=== PATIENT | female | born 1945 | race Caucasian/White ===

== ENCOUNTER 2016-11-19 11:16 | Emergency (ER) | payer MEDICARE ==
[2016-11-19] MEDS ORDERED: Ibuprofen 200 MG TAB ONE (11:49)
[2016-11-19] MEDS ORDERED: Sterile Water 100 ML ONE (12:04)
[2016-11-19 12:18] LABS: ALT (SGPT) 41 U/L (8-55); AST (SGOT) 30 U/L (5-34); Alkaline Phosphatase 129 U/L (40-150); Anion Gap 14 mmol/L (10-20); BUN (Urea Nitrogen) 16 mg/dL (9.8-20.1); Bilirubin, Total 0.6 mg/dL (0.2-1.2); Calc. Creatinine Clearance 0 mL/min (70-130); Carbon Dioxide 26 mmol/L (23-31); Chloride 103 mmol/L (98-107); Estimated GFR-MDRD 70; Globulin 3.8 g/dL (2.4-3.5); Glucose 146 mg/dL (80-115); Potassium 4.3 mmol/L (3.5-5.1); Protein, Total 7.8 g/dL (6.0-8.3); Sodium 139 mmol/L (136-145)
[2016-11-19 12:22] LABS: Band 10 % (5-11); Hemoglobin 15.2 g/dL (12.0-16.0); Lymphocytes 4 % (21-51); MDiff Complete? YES; Mean Platelet Volume 7.1 fL (7.4-10.4); Monocytes 7 % (0-10); Neutrophil 79 % (42-75); Platelet Count 235 thou/uL (130-400); RBC Distribution Width 13.7 % (11.5-14.5); White Blood Cell (WBC) Count 22.5 thou/uL (4.8-10.8)
[2016-11-19] MEDS ORDERED: Acetaminophen 325 MG TAB ONE (12:31)
--- NOTE | 2016-11-19 17:23 | RAD ---
CHEST TWO VIEWS: 11/19/16 There is some increased density to the right of the heart on the PA film and anteriorly on the later al. A right middle lobe infiltrate is suspected. Haziness near the cardiac apex is probably just woody gular scarring. The lung apices are clear. There are no effusions. The heart size is normal. IMPRESSION: Suspicious for right middle lobe infiltrate. POS: HOME
== END 2016-11-19 13:47 | disposition home or self-care (01) ==
LOC: BURERS 11:16
DX: J18.9 Pneumonia, unspecified organism (principal); I10 Essential (primary) hypertension
CPT/HCPCS: 71020; 80053; 85025; 96360

== ENCOUNTER 2018-06-19 16:15 | Emergency (ER) | payer MEDICARE ==
[2018-06-19 18:23] LABS: ALT (SGPT) 29 U/L (8-55); AST (SGOT) 23 U/L (5-34); Albumin 4.1 g/dL (3.4-4.8); Alkaline Phosphatase 117 U/L (40-150); Anion Gap 18 mmol/L (10-20); BUN (Urea Nitrogen) 41 mg/dL (9.8-20.1); Bilirubin, Total 0.4 mg/dL (0.2-1.2); Calc. Creatinine Clearance 0 mL/min (70-130); Calcium 10.9 mg/dL (7.8-10.44); Carbon Dioxide 19 mmol/L (23-31); Chloride 107 mmol/L (98-107); Estimated GFR-MDRD 21; Globulin 3.5 g/dL (2.4-3.5); Glucose 111 mg/dL (80-115); Potassium 3.5 mmol/L (3.5-5.1); Protein, Total 7.6 g/dL (6.0-8.3); Sodium 140 mmol/L (136-145)
[2018-06-19 18:24] LABS: Band 1 % (5-11); Eosinophils 1 % (0-10); Hemoglobin 15.8 g/dL (12.0-16.0); Lymphocytes 15 % (21-51); MDiff Complete? YES; Mean Corpuscular HGB CONC 32.1 g/dL (32.0-36.0); Mean Corpuscular Hemoglobin 30.8 pg (27.0-31.0); Mean Corpuscular Volume 95.9 fL (78.0-98.0); Mean Platelet Volume 7.6 fL (7.4-10.4); Monocytes 6 % (0-10); Neutrophil 77 % (42-75); Platelet Count 336 thou/uL (130-400); RBC Distribution Width 13.3 % (11.5-14.5); Red Blood Cell (RBC) Count 5.14 mill/uL (4.20-5.40); White Blood Cell (WBC) Count 13.6 thou/uL (4.8-10.8)
== END 2018-06-19 19:08 | disposition home or self-care (01) ==
LOC: BURERS 16:15
DX: K52.9 Noninfective gastroenteritis and colitis, unspecified (principal); I10 Essential (primary) hypertension
CPT/HCPCS: 80053; 85025; 96360

== ENCOUNTER 2020-04-27 19:20 | Inpatient (IN) | payer MEDICARE ==
[2020-04-27] MEDS ORDERED: Acetaminophen 500 MG TAB ONE ×2 (19:53)
[2020-04-27] MEDS ORDERED: Bacitracin 1 PK ONE (20:43)
[2020-04-27 20:57] LABS: Bilirubin Negative (Negative); Blood, Urine Small (Negative); Clarity Cloudy (Clear); Glucose, Urine (Dipstick) Negative (Negative); Ketone, Urine Negative (Negative); Leukocyte Large (Negative); Nitrite Positive (Negative); Protein, Urine (Dipstick) 100 mg/dL (Neg-Trace); Specific Gravity, Urine 1.025 (1.005-1.030)
[2020-04-27 21:09] LABS: Renal Epithelial 0-3 HPF (None Seen); WBC/HPF 21-50 HPF (0-3)
[2020-04-27 21:10] LABS: Bacteria/HPF 4+ HPF (None Seen)
[2020-04-27] MEDS ORDERED: cefTRIAXone\\ROCEPHIN 2 GM VIAL ONE (21:39)
[2020-04-27] MEDS ORDERED: Sodium Chloride 0.9% 100 ML ONE (21:39)
[2020-04-27 22:03] LABS: #Basophils 0.1 thou/uL (0.0-0.2); #Lymphocytes 1.3 thou/uL (1.20-3.40); #Monocytes 1.5 thou/uL (0.11-0.59); #Neutrophils 15.1 thou/uL (1.40-6.50); %Basophils 0.6 % (0.0-1.0); %Eosinophils 0.1 % (0.0-10.0); %Monocytes 8.5 % (0.0-10.0); %Neutrophils 83.8 % (42.0-75.0); Hemoglobin 10.8 g/dL (12.0-16.0); Mean Corpuscular HGB CONC 32.9 g/dL (32.0-36.0); Mean Corpuscular Hemoglobin 31.1 pg (27.0-31.0); Mean Corpuscular Volume 94.5 fL (78.0-98.0); Mean Platelet Volume 6.8 fL (7.4-10.4); Platelet Count 264 thou/uL (130-400); RBC Distribution Width 13.5 % (11.5-14.5); Red Blood Cell (RBC) Count 3.47 mill/uL (4.20-5.40)
[2020-04-27 22:20] LABS: ALT (SGPT) 37 U/L (8-55); AST (SGOT) 35 U/L (5-34); Albumin 3.2 g/dL (3.4-4.8); Alkaline Phosphatase 141 U/L (40-110); Anion Gap 16 mmol/L (10-20); BUN (Urea Nitrogen) 26 mg/dL (9.8-20.1); Bilirubin, Total 0.5 mg/dL (0.2-1.2); Calc. Creatinine Clearance 0 mL/min (70-130); Calcium 8.9 mg/dL (7.8-10.44); Carbon Dioxide 18 mmol/L (23-31); Chloride 103 mmol/L (98-107); Globulin 3.2 g/dL (2.4-3.5); Glucose 102 mg/dL (83-110); Protein, Total 6.4 g/dL (5.8-8.1); Sodium 133 mmol/L (136-145)
[2020-04-27 23:40] LABS: SARS-CoV-2 NAA Rapid Test Not Detected (NotDetected)
--- NOTE | 2020-04-28 | RAD ---
PORTABLE CHEST: Date: 04/27/2020 An AP portable film at 2143 hours is compared with the 05/18/2017 study. Lingular streaking is typical in this patient and is minimally different than before. Thus, I do not believe that this is a lingular infiltrate. It is a littler hazier in the right lung base medially th an before, but no enough to diagnose a definite pneumonia. The lungs are otherwise clear. The heart i s normal in size. The lungs do seem mildly hyperexpanded. There are no effusions and no vascular kalli estion was seen. Faint calcification is seen in the aortic arch. IMPRESSION: No definite acute findings. POS: HOME
[2020-04-28 00:09] VITALS: BMI 24.9
[2020-04-28] MEDS ORDERED: Ondansetron ODT 4 MG TAB SL PRN (00:45)
[2020-04-28] MEDS ORDERED: Ondansetron PF 4 MG/2 ML Vial IVP PRN (00:45)
[2020-04-28] MEDS ORDERED: Acetaminophen 325 MG TAB PO PRN (00:45)
[2020-04-28] MEDS: Dextrose 5 %-0.45 % NaCl 1,000 ML IV SCH ×2 (01:38→09:18)
[2020-04-28] MEDS ORDERED: HYDROcodone/Acetaminophen 5/325 mg Tablet PO PRN (08:09)
[2020-04-28] MEDS ORDERED: tiZANidine HCl 4 MG TAB PO PRN ×2 (08:09→08:52)
[2020-04-28] MEDS ORDERED: traMADol HCl 50 MG TAB PO SCH (08:45)
[2020-04-28] MEDS ORDERED: Floranex Packet PO SCH (09:00)
[2020-04-28] MEDS ORDERED: Aspirin 81 mg Enteric Coated Tablet PO SCH (09:00)
[2020-04-28] MEDS ORDERED: Calcium Carbonate 600 MG + Vit D TAB PO SCH (09:00)
[2020-04-28] MEDS ORDERED: Multivit, Therapeutic 1 TAB PO SCH (09:00)
[2020-04-28] MEDS ORDERED: Bupropion 150 MG XL TAB PO SCH (09:00)
[2020-04-28] MEDS: Gabapentin 300 MG CAP PO SCH ×2 (09:16→19:55)
[2020-04-28] MEDS ORDERED: Senokot S 8.6-50 MG TAB PO PRN (10:22)
[2020-04-28] MEDS: traMADol HCl 50 MG TAB PO SCH ×2 (14:19→19:56)
[2020-04-28 18:42] VITALS: BP 135/63; TEMP 98.6
[2020-04-28] MEDS ORDERED: Famotidine 20 MG TAB PO SCH (21:00)
[2020-04-28] MEDS ORDERED: Lisinopril 20 MG TAB PO SCH (21:00)
[2020-04-28] MEDS ORDERED: cefTRIAXone\\ROCEPHIN 2 GM in Sodium Chloride 0.9% 100 ML IVPB SCH (22:00)
[2020-04-28] MEDS ORDERED: Vancomycin HCl 1 GM in Sodium Chloride 0.9% 250 ML 250 ML IVPB SCH (23:00)
--- NOTE | 2020-04-29 05:26 | HP ---
CHIEF COMPLAINT: Contusion to right foot. HISTORY OF PRESENT ILLNESS: The patient is extremely pleasant 74-year-old white female with a history of paraplegia from a traumatic T12 injury after falling from a horse in 2017. The patient has a chronic suprapubic urinary catheter with a history of UTIs and pyelonephritis in the past, who was in her usual state of health until a couple of days prior to admission she began having some nausea, decreased appetite and some fatigue and then on the day of admission, she apparently got her right foot caught underneath her motorized chair causing significant cuts and abrasions to her toes, especially the fourth and fifth toes causing her to present in the emergency room. In the emergency room, she was found to have a fever greater than 102, tachycardia and elevated white count of 18,000, and was diagnosed with suspected UTI, requiring admission to the hospital. PAST MEDICAL HISTORY: Significant for, 1. 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 2. History of Sjogren's syndrome. 3. History of suprapubic catheter with recurrent UTIs in the past. 4. History of C. difficile infection approximately 2 years ago, requiring fecal transplants. The patient also reports some recent recurrence of her frequent loose bowel movements. 5. History of pain, chronic. 6. History of hypertension. 7. History of depression. 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 ALLERGIES: AMBIEN, AMOXICILLIN CAUSING HIVES, SULFA CAUSING GASTROINTESTINAL UPSET, AND CODEINE. MEDICATIONS: Current medications include: 1. Lactobacillus tablets daily. 2. Aspirin 81 mg daily. 3. Bupropion XL 150 mg daily. 4. The patient is also on gabapentin. She takes currently 300 mg two tablets b.i.d. 5. Tramadol 50 mg p.o. q.i.d. 6. Tizanidine 4 mg 1/2 to 1 tablet at bedtime for spasms. 7. Quinapril 40 mg daily. 8. Biotin tablets. 9. Calcium tablets. SOCIAL HISTORY: The patient was recently . She reports mainly being independent on her own. The patient uses a motorized wheelchair and again fairly independent, transfers on her own at her baseline. She denies any significant history of smoking, alcohol or social drug use. The patient now is currently living alone. She does have adult children in the [facility]. Her PCP is in [facility] as well. REVIEW OF SYSTEMS: Other than HPI, the patient denies any chest pain or shortness of breath. Has had no emesis reported, but has had decreased appetite. The patient denies any new rashes, but has had multiple abrasions to her lower extremities, which are recurrent. She does have a history of wound care, requiring long-term treatment for poorly healing wounds in her lower extremities. The patient says that she has a history of depression, but currently is controlled. No significant weight changes reported by the patient. PHYSICAL EXAMINATION: On admission, VITAL SIGNS: Initially in the emergency room, the patient had a temperature of 102. She was tachycardic with a heart rate in the 110s. Blood pressure was 116/52, O2 saturation was 100% on room air. GENERAL: White female, in no apparent distress. Alert and oriented x3. HEENT: Atraumatic, normocephalic. Extraocular movements intact. Pupils equal, round, and reactive to light and accommodation. Oropharynx, mucous membranes are moist. No exudate, discharge, or lesions. NECK: Supple. No masses palpated. No bruits auscultated. CHEST: Clear to auscultation bilaterally without rales or wheezes. HEART: Showed a significant grade 3/6 systolic murmur, holosystolic. ABDOMEN: Soft, nontender, and nondistended. No masses were palpated. Suprapubic catheter was noted as patent. SKIN: Evaluation of the right buttock showed an unstageable ulcer, had an eschar that had significant drainage especially in the inferior aspect with possible tunneling. There is diffuse erythema and induration in the right buttock distally to the ulcer as well as in the right perineum and right labia. It was warm and tender to palpation. LABORATORY DATA: Significant for a CBC with white count 18,000 with H and H of 10.8 and 32.7. Chemistry panel showed a BUN of 26 and creatinine of 1.45, which is slightly above her baseline. Lactic acid was 1.4, alkaline phosphatase was 141, AST 35. Urinalysis was significant for large leukocyte esterase, 4 to 6 rbc's, 21 to 50 wbc's, 4 to 6 epithelial cells, and 4+ bacteria. HOSPITAL COURSE: The patient was admitted to the floor with a suspected presumptive diagnosis of UTI. She was placed on Rocephin, vancomycin was added because of her decubitus ulcer. After my evaluation of the patient, there was concern about the nonhealing ulcer with the surrounding erythema and induration. The patient also had significant frequent voluminous bowel movements causing contamination of the right decubitus. Because of the concern for the nonstageable ulcer with the induration causing her fevers and actually the source of her infection and needing surgical consult, call was made to hospitalist at the [facility] in [place], Dr. Mendoza, hospitalist. Case was discussed with Dr. Mendoza. He agreed to accept the patient to the medical floor for continued IV antibiotics and consideration of consultation with a general surgeon to evaluate the eschar and unstageable ulcer to the right buttock. The patient was transferred via EMS. She will continue on IV fluids, normal saline 75 mL an hour. She will be transferred to the medical floor and be evaluated by a surgeon, likely within the next 24 hours. Stool collection for C.Dif was ordered due to significant loose stools with history of C.Dif infection. Job ID: [id number] [facility]
[2020-04-29] MEDS ORDERED: Enoxaparin Sodium 30 MG/0.3 ML SYRINGE SC SCH (09:00)
== END 2020-04-28 20:10 | disposition short-term general hospital (02) | DRG 593 ==
LOC: BURERS 19:20 → BURMED 22:45 → UNDOADMIN 22:45
PROVIDERS: ADMIT Family Medicine; ATTEND Family Medicine
DX: L89.310 Pressure ulcer of right buttock, unstageable (principal); G82.20 Paraplegia, unspecified; N39.0 Urinary tract infection, site not specified; S90.31XA Contusion of right foot, initial encounter; W23.1XXA Caught, crushed, jammed, or pinched between stationary objects, initial encounter; I10 Essential (primary) hypertension; Z20.822 Contact with and (suspected) exposure to COVID-19; F32.9 Major depressive disorder, single episode, unspecified; Z88.1 Allergy status to other antibiotic agents; Z88.2 Allergy status to sulfonamides; Z88.5 Allergy status to narcotic agent; Z79.82 Long term (current) use of aspirin; Z88.8 Allergy status to other drugs, medicaments and biological substances; S24.109S Unspecified injury at unspecified level of thoracic spinal cord, sequela
CPT/HCPCS: 0240U; 12001; 36415; 71045; 80053; 81003; 81015; 83605; 85025; 87040; 87070; 87077; 87086; 87186; 87205; 96365; 96375; 97602; J0696; J3370; J3490; Q0162

== ENCOUNTER 2020-08-12 11:07 | Inpatient (IN) | payer MEDICARE ==
[2020-08-12] MEDS ORDERED: Glycopyrrolate 0.4 MG/ 2 ML VIAL ONE (11:41)
[2020-08-12] MEDS ORDERED: Fentanyl 100 MCG/2 ML VIAL ONE (11:41)
[2020-08-12] MEDS ORDERED: Ondansetron PF 4 MG/2 ML Vial ONE (11:41)
[2020-08-12 11:44] LABS: Hemoglobin 10.9 g/dL (12.0-16.0); Mean Corpuscular HGB CONC 30.6 g/dL (32.0-36.0); Mean Corpuscular Hemoglobin 28.2 pg (27.0-31.0); Mean Corpuscular Volume 92.1 fL (78.0-98.0); Mean Platelet Volume 6.7 fL (7.4-10.4); Platelet Count 395 thou/uL (130-400); RBC Distribution Width 15.8 % (11.5-14.5); Red Blood Cell (RBC) Count 3.88 mill/uL (4.20-5.40); White Blood Cell (WBC) Count 13.5 thou/uL (4.8-10.8)
[2020-08-12 11:55] LABS: Anisocytosis SLIGHT = 6-15 cells (100X) (0-5/hpf); Band 11 % (5-11); Lymphocytes 12 % (21-51); MDiff Complete? YES; Metamyelocyte 1 % (0-0); Monocytes 10 % (0-10); Neutrophil 66 % (42-75); Ovalocytes SLIGHT = 2-5 cells (100X) (0-1/hpf); Poikilocytosis SLIGHT = 6-15 cells (100X) (0-5/hpf); Rouleaux Formation SLIGHT = 1-5 cells (100X) (None Seen); Tear Drops SLIGHT = 2-5 cells (100X) (0-1/hpf)
[2020-08-12 11:57] LABS: ALT (SGPT) 18 U/L (8-55); AST (SGOT) 40 U/L (5-34); Albumin 3.3 g/dL (3.4-4.8); Alkaline Phosphatase 114 U/L (40-110); Anion Gap 18 mmol/L (10-20); BUN (Urea Nitrogen) 19 mg/dL (9.8-20.1); Bilirubin, Total 0.3 mg/dL (0.2-1.2); Calc. Creatinine Clearance 0 mL/min (70-130); Carbon Dioxide 17 mmol/L (23-31); Chloride 110 mmol/L (98-107); Globulin 3.7 g/dL (2.4-3.5); Glucose 106 mg/dL (83-110); Lipase 139 U/L (8-78); Potassium 3.5 mmol/L (3.5-5.1); Sodium 141 mmol/L (136-145)
[2020-08-12] MEDS ORDERED: Ketorolac Tromethamine 30 MG/ML VIAL ONE (12:26)
[2020-08-12 12:49] LABS: Bilirubin Negative (Negative); Blood, Urine Trace (Negative); Clarity Cloudy (Clear); Glucose, Urine (Dipstick) Negative (Negative); Ketone, Urine Trace mg/dL (Negative); Leukocyte Small (Negative); Nitrite Positive (Negative); Protein, Urine (Dipstick) 30 mg/dL (Neg-Trace); Urobilinogen 0.2 mg/dL (Less than 2)
[2020-08-12 12:53] LABS: Specific Gravity, Urine 1.021 (1.002-1.036)
[2020-08-12 12:58] LABS: RBC/HPF 0-3 HPF (0-3); Renal Epithelial 0-3 HPF (None Seen); Squamous Epithelial 0-3 HPF (0-3); WBC/HPF 21-50 HPF (0-3)
[2020-08-12 12:59] LABS: Bacteria/HPF 1+ HPF (None Seen)
[2020-08-12] MEDS ORDERED: metroNIDAZOLE 500 MG/100 ML BAG ONE (13:20)
[2020-08-12 15:32] LABS: SARS-CoV-2 NAA Rapid Test Not Detected (NotDetected)
[2020-08-12] MEDS ORDERED: Ondansetron ODT 4 MG TAB SL PRN ×2 (16:00→20:17)
[2020-08-12] MEDS ORDERED: Acetaminophen 325 MG TAB PO PRN (16:00)
[2020-08-12] MEDS ORDERED: HYDROcodone/Acetaminophen 5/325 mg Tablet PO PRN ×2 (16:00)
[2020-08-12] MEDS ORDERED: Ondansetron PF 4 MG/2 ML Vial IVP PRN (16:00)
[2020-08-12] MEDS: Dextrose 5 %-0.45 % NaCl 1,000 ML IV SCH ×2 (19:16→21:02)
[2020-08-12 19:31] VITALS: BMI 24.1
[2020-08-12] MEDS ORDERED: Loperamide HCl 2 MG CAP PO PRN (20:04)
[2020-08-12] MEDS ORDERED: Polyethylene Glycol OPTH DROP 15 ML BOT EA EYE PRN ×2 (20:04→20:16)
[2020-08-12] MEDS ORDERED: Diphenoxylate HCl/Atropine Tablet PO PRN (20:04)
[2020-08-12] MEDS ORDERED: tiZANidine HCl 4 MG TAB PO PRN (20:15)
[2020-08-12] MEDS ORDERED: Aspirin 325 mg Enteric Coated Tablet PO SCH (21:00)
[2020-08-12] MEDS: Multivit, Therapeutic 1 TAB PO SCH (21:03)
[2020-08-12] MEDS: metroNIDAZOLE 250 MG TAB PO SCH (21:03)
[2020-08-12] MEDS: Lisinopril 20 MG TAB PO SCH (21:03)
[2020-08-12] MEDS: Acetaminophen 325 MG TAB PO PRN (21:18)
[2020-08-12] MEDS: Calcium Carbonate 600 MG + Vit D TAB PO SCH (21:19)
[2020-08-12] MEDS: Aspirin 81 mg Enteric Coated Tablet PO SCH (21:44)
[2020-08-13] MEDS: Gabapentin 300 MG CAP PO SCH ×2 (03:01→14:49)
[2020-08-13] MEDS: Dextrose 5 %-0.45 % NaCl 1,000 ML IV SCH (04:31)
[2020-08-13] MEDS: metroNIDAZOLE 250 MG TAB PO SCH ×3 (05:03→21:48)
[2020-08-13] MEDS: Acetaminophen 325 MG TAB PO PRN ×2 (05:04→14:48)
[2020-08-13 05:36] LABS: #Basophils 0.1 thou/uL (0.0-0.2); #Eosinphils 0.3 thou/uL (0.0-0.7); #Lymphocytes 1.8 thou/uL (1.20-3.40); #Monocytes 0.9 thou/uL (0.11-0.59); %Basophils 0.9 % (0.0-1.0); %Eosinophils 3.9 % (0.0-10.0); %Lymphocytes 25.5 % (21.0-51.0); %Monocytes 12.4 % (0.0-10.0); %Neutrophils 57.3 % (42.0-75.0); Hemoglobin 9.1 g/dL (12.0-16.0); Mean Corpuscular HGB CONC 31.4 g/dL (32.0-36.0); Mean Corpuscular Hemoglobin 28.1 pg (27.0-31.0); Mean Corpuscular Volume 89.4 fL (78.0-98.0); Mean Platelet Volume 6.5 fL (7.4-10.4); Platelet Count 266 thou/uL (130-400); RBC Distribution Width 15.4 % (11.5-14.5); Red Blood Cell (RBC) Count 3.25 mill/uL (4.20-5.40)
[2020-08-13 05:37] LABS: Anion Gap 13 mmol/L (10-20)
[2020-08-13 05:43] LABS: ALT (SGPT) 12 U/L (8-55); AST (SGOT) 14 U/L (5-34); Albumin 2.5 g/dL (3.4-4.8); Alkaline Phosphatase 82 U/L (40-110); BUN (Urea Nitrogen) 15 mg/dL (9.8-20.1); Bilirubin, Total Less than 0.2 mg/dL (0.2-1.2); Calc. Creatinine Clearance 40 mL/min (70-130); Calcium 8.4 mg/dL (7.8-10.44); Carbon Dioxide 19 mmol/L (23-31); Chloride 114 mmol/L (98-107); Globulin 2.7 g/dL (2.4-3.5); Glucose 112 mg/dL (83-110); Potassium 3.3 mmol/L (3.5-5.1); Protein, Total 5.2 g/dL (5.8-8.1); Sodium 143 mmol/L (136-145)
[2020-08-13] MEDS ORDERED: Dextrose 5 %-0.45 % NaCl 1,000 ML IV SCH (07:09)
[2020-08-13] MEDS ORDERED: CITRUCEL 500 MG PO SCH (09:00)
[2020-08-13] MEDS ORDERED: Metamucil PACK PO SCH (09:00)
[2020-08-13] MEDS: Bupropion 150 MG XL TAB PO SCH (09:50)
[2020-08-13] MEDS: traMADol HCl 50 MG TAB PO PRN ×2 (09:54→22:42)
[2020-08-13] MEDS: Cholestyramine/Aspartame 4 gm Packet PO SCH ×2 (09:56→15:58)
[2020-08-13] MEDS: Floranex Packet PO SCH (09:56)
[2020-08-13] MEDS: Amlodipine 5 MG TAB PO SCH (09:57)
[2020-08-13] MEDS: Famotidine 20 MG TAB PO SCH (09:57)
[2020-08-13] MEDS: Potassium Chloride 20 MEQ TAB PO SCH (09:57)
[2020-08-13] MEDS ORDERED: Triple Antibiotic Oint 1 GM Packet TOP PRN (12:36)
[2020-08-13] MEDS: Calcium Carbonate 600 MG + Vit D TAB PO SCH (20:46)
[2020-08-13] MEDS: Nystatin Powder 15 GM BOT TOP SCH (20:46)
[2020-08-13] MEDS: Lisinopril 20 MG TAB PO SCH (20:47)
[2020-08-13] MEDS: Aspirin 81 mg Enteric Coated Tablet PO SCH (20:47)
[2020-08-13] MEDS: Multivit, Therapeutic 1 TAB PO SCH (20:47)
[2020-08-14] MEDS: Gabapentin 300 MG CAP PO SCH ×2 (02:04→16:54)
[2020-08-14 06:11] LABS: #Basophils 0.1 thou/uL (0.0-0.2); #Eosinphils 0.2 thou/uL (0.0-0.7); #Lymphocytes 1.7 thou/uL (1.20-3.40); #Monocytes 0.6 thou/uL (0.11-0.59); %Basophils 1.1 % (0.0-1.0); %Eosinophils 3.4 % (0.0-10.0); %Monocytes 9.4 % (0.0-10.0); %Neutrophils 60.1 % (42.0-75.0); Hemoglobin 8.7 g/dL (12.0-16.0); Mean Corpuscular HGB CONC 31.6 g/dL (32.0-36.0); Mean Corpuscular Hemoglobin 28.5 pg (27.0-31.0); Mean Corpuscular Volume 90.3 fL (78.0-98.0); Mean Platelet Volume 6.6 fL (7.4-10.4); Platelet Count 282 thou/uL (130-400); RBC Distribution Width 15.6 % (11.5-14.5); Red Blood Cell (RBC) Count 3.04 mill/uL (4.20-5.40); White Blood Cell (WBC) Count 6.7 thou/uL (4.8-10.8)
[2020-08-14 06:15] LABS: ALT (SGPT) 10 U/L (8-55); AST (SGOT) 9 U/L (5-34); Albumin 2.5 g/dL (3.4-4.8); Alkaline Phosphatase 83 U/L (40-110); Anion Gap 12 mmol/L (10-20); BUN (Urea Nitrogen) 9 mg/dL (9.8-20.1); Bilirubin, Total Less than 0.2 mg/dL (0.2-1.2); Calc. Creatinine Clearance 45 mL/min (70-130); Calcium 8.2 mg/dL (7.8-10.44); Carbon Dioxide 19 mmol/L (23-31); Chloride 117 mmol/L (98-107); Globulin 2.6 g/dL (2.4-3.5); Glucose 132 mg/dL (83-110); Lipase 35 U/L (8-78); Potassium 3.5 mmol/L (3.5-5.1); Protein, Total 5.1 g/dL (5.8-8.1); Sodium 144 mmol/L (136-145)
[2020-08-14] MEDS: metroNIDAZOLE 250 MG TAB PO SCH ×2 (06:16→16:56)
[2020-08-14] MEDS: Nystatin Powder 15 GM BOT TOP SCH (09:45)
[2020-08-14] MEDS: Potassium Chloride 20 MEQ TAB PO SCH (09:45)
[2020-08-14] MEDS: Cholestyramine/Aspartame 4 gm Packet PO SCH ×2 (09:45→16:52)
[2020-08-14] MEDS: Famotidine 20 MG TAB PO SCH (09:45)
[2020-08-14] MEDS: Bupropion 150 MG XL TAB PO SCH (09:45)
[2020-08-14] MEDS: Amlodipine 5 MG TAB PO SCH (09:45)
[2020-08-14] MEDS: Floranex Packet PO SCH (09:45)
[2020-08-14 17:58] VITALS: BP 155/74; TEMP 98.7
== END 2020-08-14 20:25 | disposition home health service (06) | DRG 372 ==
LOC: BURERS 11:07 → BURMED 14:22
PROVIDERS: ADMIT Family Medicine; ATTEND Family Medicine
DX: A04.72 Enterocolitis due to Clostridium difficile, not specified as recurrent (principal); G82.20 Paraplegia, unspecified; N39.0 Urinary tract infection, site not specified; F32.9 Major depressive disorder, single episode, unspecified; M35.00 Sjogren syndrome, unspecified; I10 Essential (primary) hypertension; E86.0 Dehydration; Z96.0 Presence of urogenital implants; L89.159 Pressure ulcer of sacral region, unspecified stage; E11.9 Type 2 diabetes mellitus without complications; E87.6 Hypokalemia; L89.319 Pressure ulcer of right buttock, unspecified stage; G89.4 Chronic pain syndrome; L89.309 Pressure ulcer of unspecified buttock, unspecified stage; Z79.82 Long term (current) use of aspirin; Z79.899 Other long term (current) drug therapy; Z88.1 Allergy status to other antibiotic agents; Z88.5 Allergy status to narcotic agent; Z88.2 Allergy status to sulfonamides; Z88.8 Allergy status to other drugs, medicaments and biological substances; Z98.890 Other specified postprocedural states
CPT/HCPCS: 0240U; 36415; 80053; 81003; 81015; 83605; 83690; 85025; 87086; 87324; 87449; 94760; 96365; 96367; 96375; 97602; J1885; J1956; J2405; J3010

== ENCOUNTER 2020-10-28 17:33 | Emergency (ER) | payer MEDICARE ==
[2020-10-28] MEDS ORDERED: Ondansetron ODT 4 MG TAB ONE (18:06)
[2020-10-28 18:12] LABS: Hemoglobin 12.4 g/dL (12.0-16.0); Mean Corpuscular HGB CONC 32.2 g/dL (32.0-36.0); Mean Corpuscular Hemoglobin 28.6 pg (27.0-31.0); Mean Corpuscular Volume 88.8 fL (78.0-98.0); Platelet Count 282 thou/uL (130-400); RBC Distribution Width 14.6 % (11.5-14.5); Red Blood Cell (RBC) Count 4.32 mill/uL (4.20-5.40)
[2020-10-28 18:26] LABS: Anion Gap 13 mmol/L (10-20); BUN (Urea Nitrogen) 23 mg/dL (9.8-20.1); Calc. Creatinine Clearance 0 mL/min (70-130); Calcium 9.4 mg/dL (7.8-10.44); Carbon Dioxide 23 mmol/L (23-31); Chloride 102 mmol/L (98-107); Glucose 110 mg/dL (83-110); Potassium 4.3 mmol/L (3.5-5.1); Sodium 134 mmol/L (136-145)
[2020-10-28 18:42] LABS: Band 33 % (5-11); Lymphocytes 6 % (21-51); MDiff Complete? YES; Monocytes 10 % (0-10); Neutrophil 43 % (42-75); Reactive Lymphocytes 5 % (0-10)
[2020-10-28] MEDS ORDERED: Ciprofloxacin 500 MG TAB ONE (19:15)
[2020-10-29 16:49] LABS: SARS-CoV-2 PCR by NAA Not Detected (NotDetected)
== END 2020-10-28 19:22 | disposition home or self-care (01) ==
LOC: BURERS 17:33
DX: L89.319 Pressure ulcer of right buttock, unspecified stage (principal); N39.0 Urinary tract infection, site not specified; L03.116 Cellulitis of left lower limb; I10 Essential (primary) hypertension; M35.00 Sjogren syndrome, unspecified; Z20.822 Contact with and (suspected) exposure to COVID-19
CPT/HCPCS: 80048; 83605; 85025; 87070; 87077; 87086; 87186; 87205; 87804 ×2; 99283; U0003; U0005; 36415; Q0162

== ENCOUNTER 2020-12-08 12:11 | Outpatient (CLI) | payer MEDICARE ==
[2020-12-08 13:09] LABS: Vancomycin, Trough 13.5 ug/mL
== END 2020-12-08 12:12 | disposition home or self-care (01) ==
LOC: BURLABSP 12:11
PROVIDERS: ATTEND Internal Medicine
DX: A04.72 Enterocolitis due to Clostridium difficile, not specified as recurrent (principal); M86.651 Other chronic osteomyelitis, right thigh; Z79.2 Long term (current) use of antibiotics
CPT/HCPCS: 80202

== ENCOUNTER 2021-07-05 13:11 | Observation (INO) | payer MEDICARE ==
[2021-07-05 13:35] LABS: Hemoglobin 9.2 g/dL (12.0-16.0); Mean Corpuscular HGB CONC 30.6 g/dL (32.0-36.0); Mean Corpuscular Hemoglobin 25.4 pg (27.0-31.0); Mean Corpuscular Volume 83.1 fL (78.0-98.0); Mean Platelet Volume 6.6 fL (7.4-10.4); Platelet Count 693 thou/uL (130-400); RBC Distribution Width 18.2 % (11.5-14.5); Red Blood Cell (RBC) Count 3.63 mill/uL (4.20-5.40); White Blood Cell (WBC) Count 26.4 thou/uL (4.8-10.8)
[2021-07-05 13:52] LABS: ALT (SGPT) 106 U/L (8-55); AST (SGOT) 218 U/L (5-34); Albumin 3.1 g/dL (3.4-4.8); Alkaline Phosphatase 112 U/L (40-110); Anion Gap 26 mmol/L (10-20); BUN (Urea Nitrogen) 61 mg/dL (9.8-20.1); Bilirubin, Total 0.3 mg/dL (0.2-1.2); Calc. Creatinine Clearance 0 mL/min (70-130); Calcium 9.1 mg/dL (7.8-10.44); Carbon Dioxide 18 mmol/L (23-31); Chloride 101 mmol/L (98-107); Globulin 4.5 g/dL (2.4-3.5); Glucose 210 mg/dL (83-110); Potassium 6.4 mmol/L (3.5-5.1); Protein, Total 7.6 g/dL (5.8-8.1); Sodium 139 mmol/L (136-145)
[2021-07-05 13:56] LABS: Anisocytosis MODERATE=16-30 cells (100X) (0-5/hpf); Eosinophils 1 % (0-10); Lymphocytes 2 % (21-51); MDiff Complete? YES; Monocytes 5 % (0-10); Neutrophil 92 % (42-75); Platelet Morphology Comment Appears Increased
[2021-07-05] MEDS ORDERED: Magnesium 2 GM/50 ML BAG (IN WATER) ONE (13:56)
[2021-07-05] MEDS ORDERED: Pantoprazole 40 MG VIAL ONE (13:56)
[2021-07-05] MEDS ORDERED: Cefepime 2 GM VIAL ONE (13:56)
[2021-07-05 14:03] LABS: Bilirubin Negative (Negative); Blood, Urine Trace (Negative); Clarity Cloudy (Clear); Glucose, Urine (Dipstick) Negative (Negative); Ketone, Urine Negative (Negative); Leukocyte Moderate (Negative); Nitrite Negative (Negative); Protein, Urine (Dipstick) Trace mg/dL (Neg-Trace); Urobilinogen 0.2 mg/dL (Less than 2); pH, Urine 5.5 (5.0-9.0)
[2021-07-05] MEDS ORDERED: Atropine Sulfate 1 mg/10 ml Syringe ONE (14:07)
[2021-07-05] MEDS ORDERED: Fentanyl 100 MCG/2 ML VIAL ONE ×2 (14:10→18:20)
[2021-07-05 14:11] LABS: Bacteria/HPF 3+ HPF (None Seen); Mucous/LPF 2+ LPF (<2+); Squamous Epithelial 0-3 HPF (0-3); WBC/HPF 21-50 HPF (0-3)
[2021-07-05] MEDS ORDERED: Promethazine HCl 25 MG/ML VIAL ONE (14:40)
[2021-07-05 14:55] LABS: SARS-CoV-2 NAA Rapid Test Not Detected (NotDetected)
[2021-07-05] MEDS ORDERED: Dextrose 50% Abboject 50 ML SYRINGE ONE (15:18)
[2021-07-05] MEDS ORDERED: Insulin Regular 300 UNITS/3 ML VIAL ONE (15:18)
[2021-07-05 19:14] VITALS: BMI 17.9
[2021-07-06 05:39] VITALS: BP 78/38; TEMP 99
[2021-07-06] MEDS ORDERED: Fentanyl 100 MCG/2 ML VIAL ONE (11:35)
[2021-07-06] MEDS: Fentanyl 100 MCG/2 ML VIAL SLOW IVP PRN (11:41)
== END 2021-07-06 14:53 | disposition hospice, inpatient (51) ==
LOC: BURERS 13:11 → BURMED 18:10
PROVIDERS: ADMIT Family Medicine; ATTEND Family Medicine
DX: A41.9 Sepsis, unspecified organism (principal); N39.0 Urinary tract infection, site not specified; L03.90 Cellulitis, unspecified; R65.21 Severe sepsis with septic shock; N17.9 Acute kidney failure, unspecified; E87.5 Hyperkalemia; I10 Essential (primary) hypertension; G82.20 Paraplegia, unspecified; M35.00 Sjogren syndrome, unspecified; L89.154 Pressure ulcer of sacral region, stage 4; Z66 Do not resuscitate; Z88.0 Allergy status to penicillin; Z88.2 Allergy status to sulfonamides; Z88.5 Allergy status to narcotic agent; Z88.6 Allergy status to analgesic agent; Z88.7 Allergy status to serum and vaccine; Z88.8 Allergy status to other drugs, medicaments and biological substances; Z20.822 Contact with and (suspected) exposure to COVID-19
CPT/HCPCS: 36415; 51701; 71045; 80053; 81003; 81015; 83605; 84443; 84484; 85025; 87040; 87077; 87086; 87186; 93005; 96365; 96367; 96368; 96375; 96376; C9113; G0378; J0461; J0692; J1815; J2550; J3010; J3370; J3475; J7999; U0002

== ENCOUNTER 2021-07-06 14:45 | Inpatient (IN) | payer OTHER ==
[2021-07-06] MEDS ORDERED: Lorazepam 2 MG/ML VIAL SLOW IVP PRN (15:11)
[2021-07-06] MEDS ORDERED: Ondansetron PF 4 MG/2 ML Vial IVP PRN (15:15)
[2021-07-06] MEDS ORDERED: Scopolamine 1.5 mg/72 hour Patch TOP PRN (15:15)
[2021-07-06] MEDS ORDERED: Fentanyl 100 MCG/2 ML VIAL ONE (16:57)
[2021-07-06] MEDS: Lorazepam 2 MG/ML VIAL SLOW IVP SCH ×2 (17:02→21:39)
[2021-07-06] MEDS: Fentanyl 100 MCG/2 ML VIAL SLOW IVP SCH ×2 (17:05→21:39)
[2021-07-07] MEDS: Fentanyl 100 MCG/2 ML VIAL SLOW IVP SCH ×5 (01:48→17:56)
[2021-07-07] MEDS: Lorazepam 2 MG/ML VIAL SLOW IVP SCH ×5 (01:49→17:56)
[2021-07-07] MEDS ORDERED: Acetaminophen 650 MG Suppository PR PRN ×3 (06:32→11:16)
[2021-07-07 12:30] VITALS: TEMP 102.9
[2021-07-07 17:18] VITALS: BP 45/31
== END 2021-07-07 19:45 | disposition expired | DRG 951 ==
LOC: BURMED 14:53
PROVIDERS: ADMIT Family Medicine; ATTEND Family Medicine
DX: Z51.5 Encounter for palliative care (principal); A41.9 Sepsis, unspecified organism; R65.21 Severe sepsis with septic shock; N39.0 Urinary tract infection, site not specified; N17.9 Acute kidney failure, unspecified; E87.5 Hyperkalemia
CPT/HCPCS: J2060; J3010